=== PATIENT | male | born 1960 | race Caucasian/White ===

== ENCOUNTER → 2018-01-29 | Day surgery (SDC) | payer BC ==
[~2018-01-29] MED LIST: GEMFIBROZIL600 MG PO; LIDOCAINE HCL 2% LOCAL INJ 5 ML SDV VIAL INJ ONE; LISINOPRIL10 MG PO; METOCLOPRAMIDE HCL 10 MG/2ML VIAL ONE; PANTOPRAZOLE 40 MG 10ML VIAL ONE; PROPOFOL IV EMULSION 10 MG/ML 50 ML VIAL ONE
--- NOTE | 2018-01-29 12:52 | Operative Report ---
DATE OF PROCEDURE: January 29, 2018 REFERRING PHYSICIAN: Caleb Polo MD PROCEDURES PERFORMED 1. Esophagogastroduodenoscopy with esophageal dilatation and biopsies. 2. Colonoscopy with polypectomy and biopsies. INDICATIONS FOR EGD: Dysphagia to solids, heartburn, indigestion. INDICATIONS FOR COLONOSCOPY: Colorectal cancer screening. History of bright red blood per rectum. MEDICATION: Patient was done under MAC. Please see anesthesiologist's note. PROCEDURE: With the patient in the left lateral decubitus position, the flexible fiberoptic Olympus gastroscope was introduced into the esophagus under direct visualization without any difficulty. Some erosions were noted in the distal esophagus. An ulcer was also noted at the GE junction that was not actively bleeding, and there were no stigmata of recent hemorrhage. There were some longitudinal furrows in the esophagus, which are findings compatible with eosinophilic esophagitis. The esophagus was dilated to a size 50-Nepali Lowe. Biopsies were obtained from the esophagus to rule out EOE. The scope was then advanced with ease into the stomach. Mucosa overlying the antrum and the body revealed some patchy erythema and low-grade to moderate edema, and biopsies were obtained and sent to stain for H. pylori. The pylorus was of normal contour and shape. It was intubated with ease, and the scope was advanced all the way to the 2nd portion of the duodenum. The scope was then withdrawn slowly. Mucosa overlying the proximal 2nd portion and the duodenal bulb appeared to be within normal limits. The scope was then withdrawn back into the stomach and retroflexed. The mucosa overlying the fundus and the cardia appeared to be within normal limits. The scope was then straightened out. The stomach was decompressed. Scope was subsequently withdrawn. Patient tolerated the procedure well. IMPRESSION 1. Erosive esophagitis, ulcer of distal esophagus without active bleeding or stigmata of recent hemorrhage. 2. Rule out eosinophilic esophagitis. 3. Esophagus dilated to size 50-Nepali Lowe. 4. Gastritis, biopsied. Biopsies sent to stain for H. pylori. PLAN: Follow up histology. Initiate Protonix 40 mg 1 p.o. q.a.m. a.c. The patient was then turned around. After adequate lubrication of the anal canal, a flexible fiberoptic Olympus colonoscope was inserted into the rectum with ease and advanced all the way to the cecum. Mucosa overlying the cecum appeared to be within normal limits. The ileocecal valve was intubated, and the scope was advanced into the terminal ileum. A single ulcer was noted in the terminal ileum and that was biopsied. The scope was then withdrawn back into the colon. It was then withdrawn slowly. Mucosa overlying the ascending, transverse and descending appeared to be grossly within normal limits. One polyp was snared and 1 polyp was hot biopsied from the sigmoid, and 2 polyps were hot biopsied from the rectum. There were some mild inflammatory changes noted in the rectum, and biopsies were obtained. The scope was then retroflexed into the distal rectum, and moderate-size internal hemorrhoids were noted none of which was actively bleeding. The scope was then straightened out. It was subsequently withdrawn. Patient tolerated the procedure well. IMPRESSION 1. Ulcer at terminal ileum, biopsied. 2. Sigmoid colon polyps times 2, one snared and one hot biopsied. 3. Rectal polyps times 2, hot biopsied. 4. Proctitis, mild, biopsied. 5. Internal hemorrhoids, none actively bleeding. PLAN: Follow up histology. Initiate high-fiber, low-fat diet. Initiate high-fiber supplement. Check IBD panel, CRP and sed rate. Patient will need a followup colonoscopy in 3 years. Will proceed with small bowel series electively. Job#: [id number] CC: CALEB POLO MD
== END | disposition home or self-care (01) ==
LOC: ENDO 07:49
PROVIDERS: ATTEND Internal Medicine Gastroenterology
DX: Z12.11 Encounter for screening for malignant neoplasm of colon (principal); K20.0 Eosinophilic esophagitis; K63.5 Polyp of colon; K62.1 Rectal polyp; K22.10 Ulcer of esophagus without bleeding; K29.70 Gastritis, unspecified, without bleeding; K63.3 Ulcer of intestine; K62.89 Other specified diseases of anus and rectum; K64.8 Other hemorrhoids; I10 Essential (primary) hypertension; Z01.810 Encounter for preprocedural cardiovascular examination; Z68.32 Body mass index [BMI] 32.0-32.9, adult; Z85.46 Personal history of malignant neoplasm of prostate
CPT/HCPCS: 36415; 43239; 43450; 45380; 45384; 45385; 85651; 86140; 86256; 86671; 93005; J2001; J2765